=== PATIENT | female | born 1950 | race Caucasian/White ===

== ENCOUNTER 2022-12-16 11:00 | Outpatient (RCR) | payer MEDICARE, BC, SELFPAY | END 2022-12-16 11:52 | disposition home or self-care (01) | LOC: HO.PT 11:00 | PROVIDERS: Visit Provider Obstetrics & Gynecology | DX: M99.05 Segmental and somatic dysfunction of pelvic region (principal) | CPT/HCPCS: 97110; 97112; 97140; 97162; 97530 ==